=== PATIENT | male | born 2000 ===

== ENCOUNTER → 2022-03-01 | Outpatient (CLI) | payer OTHER ==
--- NOTE | 2022-03-01 17:26 | RAD ---
Exam Date: 03/01/2022 5:13 PM XR EXAM OF ANKLE_LEFT 3V Indication: Reason: LT ANKLE PAIN / Spl. Instructions: / History: . FINDINGS/ IMPRESSION: Ankle mortise is intact. Soft tissue swelling is noted laterally. No acute fracture or dislocation. Alignment and joint spaces are maintained. Electronically signed by: Geremias Horne MD (03/01/2022 5:24 PM) [facility]
== END ==
LOC: PMG 17:04
PROVIDERS: ATTEND Nurse Practitioner Family
DX: S99.912A Unspecified injury of left ankle, initial encounter (principal); M79.89 Other specified soft tissue disorders; X58.XXXA Exposure to other specified factors, initial encounter; Y93.89 Activity, other specified; Y92.89 Other specified places as the place of occurrence of the external cause; Y99.8 Other external cause status
CPT/HCPCS: 73610